=== PATIENT | male | born 1955 | race Caucasian/White ===

== ENCOUNTER → 2017-05-06 | Outpatient (CLI) | payer OTHER ==
[~2017-05-06] MED LIST: ALLO100T30 PO; ASCO-90 PO; ASPI-496 PO; CHOL2000 PO; EZET1TAB35 PO; IVER30CR TP; OMEG500C3 PO
== END | disposition home or self-care (01) ==
LOC: CFH 10:58
PROVIDERS: ATTEND Orthopaedic Surgery
DX: M19.011 Primary osteoarthritis, right shoulder (principal); M25.411 Effusion, right shoulder; M24.011 Loose body in right shoulder; M75.101 Unspecified rotator cuff tear or rupture of right shoulder, not specified as traumatic; S43.491D Other sprain of right shoulder joint, subsequent encounter; X58.XXXD Exposure to other specified factors, subsequent encounter

== ENCOUNTER → 2017-05-14 | Outpatient (CLI) | payer OTHER | LOC: STAR 07:52 | PROVIDERS: ATTEND Orthopaedic Surgery | DX: Z01.818 Encounter for other preprocedural examination (principal); M19.011 Primary osteoarthritis, right shoulder | CPT/HCPCS: 87081; 87147; 93005 ==

== ENCOUNTER 2017-05-25 09:00 | Day surgery (SDC) | payer OTHER ==
[~2017-05-25] VITALS: Ht 188 cm; Wt 109.0 kg
[~2017-05-25 09:00] MED LIST changes: +CEFAZOLIN 1,000 MG ONE; +CLINDAMYCIN 150 MG/ML, 6ML ONE; +DEXAMETHASONE 4 MG/ML, 1ML ONE; +FENTANYL PF 100 MCG/2ML ONE; +FENTANYL PF 250 MCG/5ML ONE; +GLYCOPYRROLATE 0.2MG/1ML, 5ML ONE; +MIDAZOLAM 1 MG/ML, 2ML ONE; +NEOSTIGMINE 1 MG/ML, 10ML ONE; +ONDANSETRON 2MG/ML, 2ML ONE; +PROPOFOL 10 MG/ML, 20ML ONE; +ROCURONIUM 10 MG/ML,10ML ONE; +SUCCINYLCHOLINE 20 MG/ML, 10ML ONE
[2017-05-25] MEDS ORDERED: VANCOMYCIN PER PHARMACY MC ONE (09:09)
[2017-05-25 09:24] VITALS: BP 137/96
[2017-05-25] MEDS ORDERED: LACTATED RINGERS 1,000 ML IV SCH (09:27)
[2017-05-25] MEDS ORDERED: VANCOMYCIN 2,000 MG in SODIUM CHLORIDE 0.9% 500 ML IV ONE (09:30)
[2017-05-25] MEDS ORDERED: LIDOCAINE 1%, 2ML SQ PRN (09:30)
[2017-05-25] MEDS ORDERED: BUPIVACAINE/PF 0.5% ONE (09:57)
[2017-05-25] MEDS ORDERED: PHENYLEPHRINE 10 MG/ML ONE (11:06)
[2017-05-25] MEDS ORDERED: FENTANYL PF 250 MCG/5ML ONE (11:41)
[2017-05-25] MEDS ORDERED: HYDROcodone/APAP 7.5-325MG/15ML UDC PO PRN (12:00)
[2017-05-25] MEDS ORDERED: LABETALOL 5MG/ML, 20ML IV PRN (12:00)
[2017-05-25] MEDS ORDERED: hydrALAzine 20 MG/ML, 1ML IV PRN (12:00)
[2017-05-25] MEDS ORDERED: ONDANSETRON 2MG/ML, 2ML IVPush PRN (12:00)
[2017-05-25] MEDS ORDERED: ACETAMINOPHEN 325 MG TABLET PO PRN (12:00)
[2017-05-25] MEDS ORDERED: OXYcodone 5 MG/5 ML ORAL.SOL UDC PO PRN (12:00)
[2017-05-25] MEDS ORDERED: FENTANYL PF 100 MCG/2ML IV PRN (12:00)
[2017-05-25] MEDS ORDERED: HYDROmorphone 1 MG/ML, 1ML IV PRN (12:00)
[2017-05-25] MEDS ORDERED: ACETAMINOPHEN 325 MG TABLET ONE (13:28)
[2017-05-25] MEDS ORDERED: ACETAMINOPHEN 650 MG/20.3 ML UDC ONE (13:28)
[2017-05-25] MEDS ORDERED: OXYcodone 5 MG/5 ML ORAL.SOL UDC ONE (13:29)
[2017-05-26] MEDS ORDERED: ASCORBIC ACID 500 MG PO SCH (09:00)
[2017-05-26] MEDS ORDERED: ASPIRIN 81 MG TABLET EC PO SCH (09:00)
[2017-05-26] MEDS ORDERED: TEMPLATE NON-FORMULARY MED. (Cholecalciferol (Vitamin D3)** (Vitamin D-3**) 2,000 UNIT) PO SCH (09:00)
[2017-05-26] MEDS ORDERED: IVERMECTIN TP SCH (09:00)
[2017-05-26] MEDS ORDERED: OMEGA PO SCH (09:00)
[2017-05-26] MEDS ORDERED: ALLOPURINOL 100 MG TABLET PO SCH (09:00)
[2017-05-26] MEDS ORDERED: TEMPLATE NON-FORMULARY MED. (Ezetimibe/Simvastatin** (Vytorin 10-40 Mg Tablet**) 1 TAB) PO SCH (09:00)
[2017-05-26] MEDS ORDERED: FATTY ACIDS PO SCH (09:00)
== END 2017-05-25 15:30 ==
LOC: OUT 09:00 → EDSTATUS 09:00 → OUT 15:30
PROVIDERS: ATTEND Orthopaedic Surgery
DX: M19.011 Primary osteoarthritis, right shoulder (principal); M65.811 Other synovitis and tenosynovitis, right shoulder; Z79.82 Long term (current) use of aspirin
CPT/HCPCS: 23430; 23472; C1713; C1776; J0330; J0690; J1100; J2250; J2370; J2405; J2704; J3010; J3370; J3490; J7040; J7120; J2710

== ENCOUNTER → 2018-02-23 | Outpatient (CLI) | payer OTHER ==
[~2018-02-23] MED LIST changes: -CEFAZOLIN 1,000 MG ONE; -CLINDAMYCIN 150 MG/ML, 6ML ONE; -DEXAMETHASONE 4 MG/ML, 1ML ONE; -FENTANYL PF 100 MCG/2ML ONE; -FENTANYL PF 250 MCG/5ML ONE; -GLYCOPYRROLATE 0.2MG/1ML, 5ML ONE; -MIDAZOLAM 1 MG/ML, 2ML ONE; -NEOSTIGMINE 1 MG/ML, 10ML ONE; -ONDANSETRON 2MG/ML, 2ML ONE; -PROPOFOL 10 MG/ML, 20ML ONE; -ROCURONIUM 10 MG/ML,10ML ONE; -SUCCINYLCHOLINE 20 MG/ML, 10ML ONE
== END | disposition home or self-care (01) ==
LOC: RAD 12:17
PROVIDERS: ATTEND Orthopaedic Surgery
DX: M48.02 Spinal stenosis, cervical region (principal); M25.78 Osteophyte, vertebrae
CPT/HCPCS: 72141